=== PATIENT | female | born 2000 | race African-American/Black ===

== ENCOUNTER 2024-07-22 02:40 | Emergency (ER) | payer OTHER, MEDICAID ==
[2024-07-22 02:46] VITALS: TEMP 36.4
[2024-07-22] MEDS: SODIUM CHLORIDE 0.9% 1,000 ML IV ONE (03:06)
[2024-07-22] MEDS: ACETAMINOPHEN 1000MG/100ML 100 ML IV ONE (03:11)
[2024-07-22 03:12] LABS: CHLORIDE 109 mEq/L (98-107); POTASSIUM 3.9 mEq/L (3.5-5.1); SODIUM 143 mEq/L (136-145)
[2024-07-22 03:13] LABS: CALCIUM 9.4 mg/dL (8.7-10.4); CARBON DIOXIDE 23 mEq/L (21-32)
[2024-07-22 03:16] LABS: HCG SCREEN NEGATIVE
[2024-07-22 03:18] LABS: CREATININE 0.8 mg/dL (0.6-1.0); GLUCOSE 111 mg/dL (70-105); UREA NITROGEN BLOOD 8 mg/dL (9-23)
[2024-07-22 03:19] LABS: ETHANOL BLOOD 250 mg/dL (<10)
[2024-07-22 03:20] LABS: ALANINE AMINOTRANSFERASE 29 IU/L (10-49); ALBUMIN 4.5 g/dL (3.2-4.8); ASPARTATE AMINOTRANSFERASE 25 IU/L (<34); BILIRUBIN DIRECT < 0.1 mg/dL (<=3.0)
[2024-07-22 03:21] LABS: BILIRUBIN TOTAL 0.3 mg/dL (0.1-1.0); PROTEIN TOTAL 7.5 g/dL (6.0-8.3)
[2024-07-22 03:30] LABS: HEMATOCRIT. 38.8 % (36.0-48.0); HEMOGLOBIN. 12.8 g/dL (12.0-16.0); MEAN CORPUSCULAR HEMOGLOBIN 29.4 pg (28.0-32.0); MEAN CORPUSCULAR HGB CONC 32.9 g/dL (31.0-37.0); MEAN CORPUSCULAR VOLUME 89.3 fL (81.0-99.0); MEAN PLATELET VOLUME 9.4 fl (7.4-10.4); PLATELET 211 x1000/uL (130-400); RED BLOOD CELL COUNT 4.34 mill/uL (4.2-5.4); RED CELL DISTRIBUTION WIDTH 14.8 % (11.6-14.6); WHITE BLOOD COUNT 7.5 x1000/uL (4.5-11.0)
[2024-07-22 03:35] LABS: PARTIAL THROMBOPLASTIN TIME 29.6 sec (23.4-31.0); PROTHROMBIN TIME 11.2 sec (9.6-11.0)
[2024-07-22] MEDS ORDERED: BACITRACIN 14GM TUBE TOP ONE (04:30)
[2024-07-22 04:36] LABS: CLARITY URINE CLEAR (CLEAR); COLOR URINE YELLOW (YELLOW); GLUCOSE URINE NEGATIVE (NEGATIVE); KETONES URINE NEGATIVE (NEGATIVE); LEUKOCYTE ESTERASE URINE NEGATIVE (NEGATIVE); NITRITE URINE NEGATIVE (NEGATIVE); OCCULT BLOOD URINE 2+ (NEGATIVE); PROTEIN URINE NEGATIVE (NEGATIVE); SPECIFIC GRAVITY URINE 1.017 (1.005-1.030); UROBILINOGEN URINE 0.2 E.U./dL (0.2-1.0)
[2024-07-22] MEDS ORDERED: BACITRACIN ZINC OINT UDPKT TOP NR (05:00)
[2024-07-22] MEDS ORDERED: TETRACAINE 0.5% OPHTH DROPS 4ML BOTHEYE ONE (05:15)
[2024-07-22] MEDS ORDERED: LIDOCAINE HCL 1% 20ML VIAL INFIL ONE (05:15)
[2024-07-22] MEDS ORDERED: FLUORESCEIN SODIUM 1MG/STRIP BOTHEYE ONE (05:15)
[2024-07-22 05:27] LABS: SQUAMOUS EPITHELIAL CELL URINE FEW /lpf (RARE/1+)
[2024-07-22 05:28] LABS: BACTERIA URINE NONE SEEN; RBC URINE 0-2 /hpf (0-2); WBC URINE 0-2 /hpf (0-2)
[2024-07-22 05:55] LABS: BASOPHILS % 0.6 % (0.0-2.0); EOSINOPHILS % 0.5 % (0.0-5.0); LYMPHOCYTES % 51.1 % (20.0-50.0); MONOCYTES % 4.1 % (2.0-8.0); NEUTROPHILS % 43.7 % (40.0-76.0)
[2024-07-22] MEDS: IOHEXOL-350 100 ML BOTTLE ONE (05:56)
[2024-07-22] MEDS ORDERED: NAPR-1074 MT (06:03)
[2024-07-22 06:24] VITALS: BP 123/87; PULSE 77; RESP 18; O2SAT 98
== END 2024-07-22 06:26 | disposition home or self-care (01) ==
LOC: ER 02:40
DX: S61.512A Laceration without foreign body of left wrist, initial encounter (principal); S70.312A Abrasion, left thigh, initial encounter; M54.2 Cervicalgia; F10.129 Alcohol abuse with intoxication, unspecified; Z79.899 Other long term (current) drug therapy; Z91.013 Allergy to seafood; Z88.0 Allergy status to penicillin; J45.909 Unspecified asthma, uncomplicated; V09.9XXA Pedestrian injured in unspecified transport accident, initial encounter; Y93.89 Activity, other specified; Y92.89 Other specified places as the place of occurrence of the external cause; Y99.8 Other external cause status; Y90.9 Presence of alcohol in blood, level not specified
CPT/HCPCS: 80076; 80048; 81003; 80320; 84703; 85025; 85610; 85730; 86850; 86900; 86901; 36415; 73552; 74174; 72170; 73560; 71275; 70450; 72125; 12001; 96365; 99285; Q9967; J3490; Z7610; G0480; J0131